=== PATIENT | male | born 1975 | race Caucasian/White ===

== ENCOUNTER 2020-03-18 17:40 | Emergency (ER) | payer MEDICAID ==
[~2020-03-18] VITALS: Ht 177.8 cm; Wt 94.7 kg
[~2020-03-18 17:40] MED LIST: BACDS PO; NAPR-1144 PO; NAPR-996 PO
[2020-03-18 18:11] VITALS: BP 129/75
[2020-03-18] MEDS ORDERED: proparacaine 0.5% ophthalmic drops 15ml EACHEYE ONE (18:15)
[2020-03-18] MEDS ORDERED: ciprofloxacin 0.3% 2.5ml ophthalmic solution EACHEYE ONE ×2 (18:25→18:30)
== END 2020-03-18 19:11 | disposition home or self-care (01) ==
LOC: ER 17:41
DX: T15.02XA Foreign body in cornea, left eye, initial encounter (principal); F15.90 Other stimulant use, unspecified, uncomplicated; Z86.19 Personal history of other infectious and parasitic diseases; Z86.14 Personal history of Methicillin resistant Staphylococcus aureus infection; Z72.89 Other problems related to lifestyle; Z60.2 Problems related to living alone; Z56.0 Unemployment, unspecified; Z59.0 Homelessness; Z79.2 Long term (current) use of antibiotics; Z79.899 Other long term (current) drug therapy; X58.XXXA Exposure to other specified factors, initial encounter; Y93.89 Activity, other specified; Y92.89 Other specified places as the place of occurrence of the external cause; Y99.8 Other external cause status
CPT/HCPCS: 65222; 99284

== ENCOUNTER 2020-05-04 06:38 | Day surgery (SDC) | payer MEDICAID ==
[2020-04-27 14:28] LABS: BASOPHILS # (AUTO) 0.1 X10'3 (0-0.2); BASOPHILS % (AUTO) 0.6 % (0-1); EOSINOPHILS # (AUTO) 0.4 X10'3 (0-0.9); EOSINOPHILS % (AUTO) 4.4 % (0-6); LYMPHOCYTES % (AUTO) 32.4 % (21-51); MEAN CORPUSCULAR HEMOGLOBIN 30.7 PG (27.0-31.0); MEAN CORPUSCULAR HGB CONC 33.7 g/dL (33.0-36.5); MEAN CORPUSCULAR VOLUME 91.1 FL (78-98); MEAN PLATELET VOLUME 8.2 FL (7.4-10.4); MONOCYTES # (AUTO) 0.6 X10'3 (0-0.9); MONOCYTES % (AUTO) 6.2 % (2-12); NEUTROPHILS # (AUTO) 5.2 X10'3 (1.8-7.7); NEUTROPHILS % (AUTO) 56.4 % (42-75); PRE OP HEMATOCRIT 44.5 % (42.0-52.0); PRE OP PLATELET COUNT 302 X10'3 (140-440); RED BLOOD COUNT 4.89 X10'6 (4.70-6.10); RED CELL DISTRIBUTION WIDTH 13.2 % (11.5-14.5)
[2020-04-27 14:38] LABS: ALKALINE PHOSPHATASE 68 IU/L (46-116); BLOOD UREA NITROGEN 13 MG/DL (7-18); BUN/CREATININE RATIO 12.3 (5.4-32.0); CALCIUM 8.8 MG/DL (8.5-10.1); CHLORIDE 106 MMOL/L (99-107); CREATININE 1.06 MG/DL (0.60-1.10); PRE OP ALT 24 U/L (30-65); PRE OP ANION GAP 7 (8-16); PRE OP AST 19 U/L (10-37); PRE OP BILIRUB, TOTAL 0.3 MG/DL (0.0-1.0); PRE OP GLUCOSE 109 MG/DL (70-104); PRE OP POTASSIUM 3.6 MMOL/L (3.4-5.1); PRE OP SODIUM 139 MMOL/L (135-145); TOTAL CARBON DIOXIDE 25.8 MMOL/L (24-32); TOTAL PROTEIN 7.9 G/DL (6.4-8.2); eGFR 75 ML/MIN
[~2020-05-04] VITALS: Ht 177.8 cm; Wt 93.3 kg
[2020-05-04] VITALS (8 sets, daily range): BP systolic 89–115; BP diastolic 50–79
[~2020-05-04 06:38] MED LIST changes: -BACDS PO; -NAPR-1144 PO; -NAPR-996 PO; +NO HOME MEDS; +ceFAZolin 2gm in dextrose, iso 50 ML IV ONE; +famotidine 10mg tablet PO ONE; +ringers solution, lacted 1,000 ML IV SCH
[2020-05-04] MEDS ORDERED: BUPIVAcaine/PF 2.5 mg/ml (0.25%) 30ml vial ONE (07:09)
[2020-05-04] MEDS ORDERED: ondansetron/PF 4mg/2ml inj IV PRN (08:20)
[2020-05-04] MEDS ORDERED: proCHLORperazine 10 MG/2 ml inj IV PRN (08:20)
[2020-05-04] MEDS ORDERED: hydrALAZINE 20mg/ml inj. IV PRN (08:20)
[2020-05-04] MEDS ORDERED: acetaminophen 1,000mg/100ml IV 100 ML IV PRN (08:20)
[2020-05-04] MEDS ORDERED: meperidine/PF 25mg/ml syringe IV PRN ×3 (08:20)
[2020-05-04] MEDS ORDERED: morphine 4 MG/ML inj SYRINge IV PRN (08:20)
[2020-05-04] MEDS ORDERED: ringers solution, lacted 1,000 ML IV SCH (08:20)
[2020-05-04] MEDS ORDERED: morphine 2 MG/ML inj. syringe IV PRN (08:20)
[2020-05-04] MEDS ORDERED: labetalol 20mg/4ml (5mg/ml) syringe IV PRN (08:20)
[2020-05-04] MEDS ORDERED: propofol 10mg/ml 20ml vial IV ONE (09:13)
[2020-05-04] MEDS ORDERED: LIDOcaine 0.5% (5mg/ml) 50ml vial ONE (09:16)
[2020-05-04] MEDS ORDERED: fentaNYL/PF 50MCG/1 ML 2ML syringe ONE (09:17)
[2020-05-04] MEDS ORDERED: MIDAZolam 5mg/5ml vial ONE (09:22)
--- NOTE | 2020-05-04 10:04 | NUR ---
Received from OR via jonathan, accompanied by Anesthesiologist Suman and report given by Anesthesiolgist. VS stable, mask to 10L sats 93%, requires occasional chin tilt. 20G left forearm LR 100cc/hr. Good cap refill to right hand, wrapped, fingers exposed. Pt not yet responsive.
--- NOTE | 2020-05-04 11:14 | NUR ---
PATIENT AND FAMILY AND THEY HAVE VERBALIZED UNDERSTANDING, OPPORTUNITY TO ASK QUESTIONS GIVEN AND PATIENT COMFORTABLE WITH DC. IV TAKEN OUT WITHOUT COMPLICATION. PATIENT HAS MET ALL DC CRITERIA FOR DC HOME. I HAVE REVIEWED D/C INSTRUCTIONS WITH OUT VIA WHEELCHAIR WHERE PATIENT WAS TAKEN HOME WITH ALL BELONGINGS. S/O GAVE PATIENT TRANSPORT HOME. Pt given noted from MD to state okay to go back to work tomorrow. Pt verbalized understanding of how important it is to keep dressing CDI. Pt states he knows to take ibuprofen and tylenol if pain occurs.
== END 2020-05-04 11:14 | disposition home or self-care (01) ==
LOC: PAS 06:38
PROVIDERS: ATTEND Orthopaedic Surgery Hand Surgery
DX: S66.211A Strain of extensor muscle, fascia and tendon of right thumb at wrist and hand level, initial encounter (principal); Z87.891 Personal history of nicotine dependence; Z98.890 Other specified postprocedural states; Z86.14 Personal history of Methicillin resistant Staphylococcus aureus infection; Z20.828 Contact with and (suspected) exposure to other viral communicable diseases; Z79.899 Other long term (current) drug therapy; X58.XXXA Exposure to other specified factors, initial encounter; Y93.89 Activity, other specified; Y92.89 Other specified places as the place of occurrence of the external cause; Y99.8 Other external cause status
CPT/HCPCS: 26480; 36415; 80053; 82948; 85025; 87635; 93005; J2001; J2250; J2704; J3010; J3490; A4215; A7000; J7120